=== PATIENT | female | born 1940 | race Caucasian/White ===

== ENCOUNTER 2016-12-23 08:08 | Day surgery (SDC) | payer MEDICARE, BC ==
[~2016-12-23 08:08] MED LIST: PROPOFOL 500 MG/50 ML EMU IV ONE
[2016-12-23] MEDS ORDERED: ONDANSETRON HCL 4 MG/2 ML SOL ONE (10:43)
[2016-12-23 11:32] VITALS: BP 129/58; PULSE 70; RESP 24; TEMP 97.2; O2SAT 95
== END 2016-12-23 11:44 | disposition home or self-care (01) | DRG 951 ==
LOC: SURG 08:08
PROVIDERS: ATTEND Surgery
DX: Z12.11 Encounter for screening for malignant neoplasm of colon (principal)
CPT/HCPCS: J2405; J2704

== ENCOUNTER 2017-03-27 17:21 | Emergency (ER) | payer MEDICARE, BC ==
[2017-03-27 17:46] LABS: HEMATOCRIT 39 % (35-47); MEAN CORPUSCULAR HGB CONC 33.5 gm/dl (32.0-36.0); MEAN CORPUSCULAR VOLUME 91 fL (81-99)
[2017-03-27 18:05] LABS: ALBUMIN 3.3 gm/dl (3.4-5.0); CALCIUM 8.4 mg/dl (8.5-10.1); POTASSIUM 3.9 mMol/L (3.5-5.1)
[2017-03-27 18:26] LABS: BASOPHILS % (MANUAL) 2 % (0-3); EOSINOPHILS % (MANUAL) 0 % (0-9); LYMPHOCYTES % (MANUAL) 16 % (10-50)
[2017-03-27 18:28] LABS: HYPERSEGMENTED NEUTROPHILS 15; NORMAL RBCS NORMAL RBCS
[2017-03-27 19:23] VITALS: TEMP 98.4
[2017-03-27] MEDS ORDERED: ALBUTEROL/IPRATROPIUM 1 VIAL SOL INH ONE (20:37)
[2017-03-27] MEDS ORDERED: ALBUTEROL/IPRATROPIUM 1 VIAL SOL ONE (20:37)
[2017-03-27 20:48] VITALS: RESP 16
[2017-03-27 21:39] VITALS: BP 140/68; PULSE 66; O2SAT 96
== END 2017-03-27 21:30 | disposition home or self-care (01) | DRG 192 ==
LOC: ED 17:21
DX: J44.1 Chronic obstructive pulmonary disease with (acute) exacerbation (principal)
CPT/HCPCS: 36415; 71010; 71275; 80053; 83880; 85007; 85027; 85378; 93005; 99283; 99285; J7620; Q9967

== ENCOUNTER 2017-06-14 13:40 | Emergency (ER) | payer MEDICARE, BC ==
[2017-06-14] MEDS ORDERED: METOPROLOL TARTRATE 5 MG/5 ML SOL IV ONE ×2 (14:09→14:20)
[2017-06-14] MEDS ORDERED: SODIUM CHLORIDE 0.9% FLUSH 10 ML SOL IV PRN (14:35)
[2017-06-14] MEDS ORDERED: ASPIRIN 81 MG CHEWABLE CTB PO STA (14:35)
[2017-06-14] MEDS ORDERED: NITROGLYCERIN 0.4 MG TAB SL PRN (14:35)
[2017-06-14] MEDS ORDERED: ASPIRIN 81 MG CHEWABLE CTB ONE (14:41)
[2017-06-14 14:50] LABS: BASOPHILS % (AUTO) 3 % (0-3); EOSINOPHILS % (AUTO) 1 % (0-9); HEMATOCRIT 39 % (35-47); MEAN CORPUSCULAR HGB CONC 32.4 gm/dl (32.0-36.0); MEAN CORPUSCULAR VOLUME 94 fL (81-99); MONOCYTES % (AUTO) 6.4 % (0-12); NEUTROPHILS % (AUTO) 82.4 % (37-80)
[2017-06-14 15:06] LABS: APPEARANCE,URINE Clear; BILIRUBIN,URINE NEGATIVE (NEGATIVE); COLOR,URINE Yellow; GLUCOSE, URINE (UA) NEGATIVE (NEGATIVE); KETONES,URINE NEGATIVE (NEGATIVE); LEUKOCYTE ESTERASE ,URINE TRACE (NEGATIVE); NITRATE,URINE NEGATIVE (NEGATIVE); OCCULT BLOOD,URINE NEGATIVE (NEG-TRACE); PH,URINE 6.5; UROBILINOGEN,URINE 0.2 (0.2-1.0 EU)
[2017-06-14 15:15] LABS: ALBUMIN 2.9 gm/dl (3.4-5.0); BILIRUBIN,DIRECT 0.2 mg/dl (0.0-0.2); CALCIUM 7.9 mg/dl (8.5-10.1); MAGNESIUM 1.9 mg/dl (1.8-2.4); POTASSIUM 3.9 mMol/L (3.5-5.1)
[2017-06-14 15:36] VITALS: PULSE 115; TEMP 98.4
[2017-06-14 15:37] VITALS: BP 104/67; RESP 26; O2SAT 97
[2017-06-14 15:53] LABS: RBC,URINE NEG (0-3AV/HPF); WBC,URINE 0-2 (0-5AV/HPF)
== END 2017-06-14 16:25 | disposition home or self-care (01) | DRG 310 ==
LOC: ED 13:40
DX: I48.92 Unspecified atrial flutter (principal); D69.6 Thrombocytopenia, unspecified; M32.8 Other forms of systemic lupus erythematosus; J44.9 Chronic obstructive pulmonary disease, unspecified
CPT/HCPCS: 36415; 71045; 80048; 80076; 81001; 82550; 83735; 84100; 84484; 85025; 85610; 85730; 87040; 93005; 99285

== ENCOUNTER 2017-07-13 15:08 | Inpatient (IN) | payer MEDICARE, BC ==
[2017-07-13] MEDS ORDERED: SODIUM CHLORIDE 0.9% 500 ML 500 ML IV SCH (15:15)
[2017-07-13] MEDS ORDERED: FUROSEMIDE 20mg SOL IV SCH (15:15)
[2017-07-13 16:29] LABS: ABO O; ANTIBODY SCREEN Negative; RH TYPE Positive
[2017-07-13 16:30] LABS: UNIT TYPE O POSITIVE
[2017-07-13] MEDS: SODIUM CHLORIDE 0.9% FLUSH 10 ML SOL IV PRN ×2 (17:09→19:32)
[2017-07-13] MEDS ORDERED: LORAZEPAM 0.5 MG TAB PO PRN (17:16)
[2017-07-13] MEDS ORDERED: NITROGLYCERIN 0.4 MG TAB SL PRN (17:16)
[2017-07-13] MEDS ORDERED: POLYETHYLENE GLYCOL 17 GM/1 TBS PDS PO PRN (17:16)
[2017-07-13] MEDS ORDERED: ALBUTEROL HFA 60 PUFF/INHALER INH PRN (17:16)
[2017-07-13] MEDS ORDERED: ALBUTEROL NEB SOL 2.5MG/3ML 1 VIAL SOL NEB PRN (17:16)
[2017-07-13] MEDS ORDERED: BETAMETHASONE DIPROPIONATE TP PRN (17:16)
[2017-07-13] MEDS: PENTOXIFYLLINE 400 MG PO SCH (18:23)
[2017-07-13] MEDS: HYDROXYCHLOROQUINE SULFATE 200 MG TAB PO SCH (20:45)
[2017-07-13] MEDS: Non-Formulary Medication MISC (Budesonide/Formoterol 160/4.5 1 PUFF) INH SCH (20:45)
[2017-07-13] MEDS ORDERED: SIMVASTATIN 20 MG TAB PO SCH (21:00)
[2017-07-13] MEDS: DILTIAZEM HYDROCHLORIDE 60 MG TAB PO SCH (21:20)
[2017-07-13] MEDS ORDERED: TEMAZEPAM 15MG 15 MG CAP PO PRN (22:39)
[2017-07-13] MEDS ORDERED: DOCUSATE SODIUM 100 MG SGL PO PRN (23:44)
[2017-07-14 06:39] VITALS: O2SAT 93
[2017-07-14] MEDS ORDERED: OMEPRAZOLE 20 MG CAPSULE PO SCH (07:00)
[2017-07-14 07:21] LABS: BASOPHILS % (AUTO) 4 % (0-3); EOSINOPHILS % (AUTO) 1 % (0-9); HEMATOCRIT 28 % (35-47); MEAN CORPUSCULAR HGB CONC 32.9 gm/dl (32.0-36.0); MEAN CORPUSCULAR VOLUME 92 fL (81-99); MONOCYTES % (AUTO) 6.6 % (0-12); NEUTROPHILS % (AUTO) 70.8 % (37-80)
[2017-07-14 07:25] LABS: CALCIUM 7.8 mg/dl (8.5-10.1); POTASSIUM 3.7 mMol/L (3.5-5.1)
[2017-07-14] MEDS: DILTIAZEM HYDROCHLORIDE 60 MG TAB PO SCH (08:49)
[2017-07-14] MEDS: Non-Formulary Medication MISC (Budesonide/Formoterol 160/4.5 1 PUFF) INH SCH (08:56)
[2017-07-14] MEDS ORDERED: ENOXAPARIN 40 MG SOL SC SCH (09:00)
[2017-07-14] MEDS ORDERED: SENNOSIDES A AND B 8.6 MG TAB PO SCH (09:00)
[2017-07-14] MEDS ORDERED: FUROSEMIDE 20 MG TAB PO SCH (09:00)
[2017-07-14] MEDS: HYDROXYCHLOROQUINE SULFATE 200 MG TAB PO SCH (09:00)
[2017-07-14] MEDS ORDERED: ASPIRIN EC 81 MG PO SCH (09:00)
[2017-07-14] MEDS ORDERED: PANTOPRAZOLE SODIUM 40 MG ECT PO SCH (09:00)
[2017-07-14] MEDS ORDERED: [UNRECOGNIZED DRUG - OTHER] INH SCH (09:00)
[2017-07-14] MEDS ORDERED: SERTRALINE HYDROCHLORIDE 50 MG TAB PO SCH (09:00)
[2017-07-14] MEDS ORDERED: FERROUS SULFATE 325 MG TAB PO SCH (09:00)
[2017-07-14] MEDS ORDERED: HYDROXYUREA PO SCH (09:00)
[2017-07-14] MEDS: PENTOXIFYLLINE 400 MG PO SCH (09:14)
[2017-07-14 12:17] VITALS: BP 103/63; PULSE 76; RESP 14; TEMP 98.3
[2017-07-14] MEDS ORDERED: PENTOXIFYLLINE 400 MG PO SCH (18:00)
[2017-07-14] MEDS ORDERED: BUDESONIDE/FORMOTEROL 160/4.5 AER INH SCH (21:00)
[2017-07-15] MEDS ORDERED: FERROUS GLUCONATE 324 MG TABLET PO SCH (09:00)
[2017-07-15] MEDS ORDERED: HYDROXYUREA 500 MG CAP PO SCH (09:00)
== END 2017-07-14 10:40 | disposition home or self-care (01) | DRG 812 ==
LOC: ACUTE CARE 15:08 → OBSVTOIN 15:08
PROVIDERS: ADMIT Emergency Medicine; ATTEND Emergency Medicine
PROC: 30233N1 Transfusion of Nonautologous Red Blood Cells into Peripheral Vein, Percutaneous Approach (ICD-10-PCS; principal; 2017-07-13)
DX: D64.9 Anemia, unspecified (principal); R06.00 Dyspnea, unspecified; I25.10 Atherosclerotic heart disease of native coronary artery without angina pectoris; I35.0 Nonrheumatic aortic (valve) stenosis
CPT/HCPCS: 36415; 80048; 85025; 86850; 86900; 86901; 86920; 93012; 94150; 99070; J1940; J7613; P9016; A9270-GY

== ENCOUNTER 2017-11-13 18:33 | Emergency (ER) | payer MEDICARE, BC ==
[2017-11-13 18:59] VITALS: RESP 16; TEMP 97
[2017-11-13] MEDS ORDERED: CEPHALEXIN 250 MG/5 ML BOTTLE PO ONE (18:59)
[2017-11-13] MEDS ORDERED: CEPHALEXIN 250 MG/5 ML BOTTLE ONE (19:03)
[2017-11-13 19:29] VITALS: BP 118/66; PULSE 68; O2SAT 91
== END 2017-11-13 19:25 | disposition home or self-care (01) | DRG 556 ==
LOC: ED 18:33
DX: M25.561 Pain in right knee (principal)
CPT/HCPCS: 99282; A9270-GY

== ENCOUNTER 2018-02-18 00:22 | Emergency (ER) | payer MEDICARE, BC ==
[2018-02-18 00:22] VITALS: O2SAT 94
[2018-02-18 00:29] VITALS: BP 151/71; PULSE 86; RESP 22; TEMP 97.6
[2018-02-18] MEDS ORDERED: APAP/HYDROCODONE 325/5 TAB PO ONE (00:50)
[2018-02-18] MEDS ORDERED: CEFTRIAXONE 1 GM PDS IM ONE (00:50)
[2018-02-18] MEDS ORDERED: APAP/HYDROCODONE 325/5 TAB ONE (00:54)
[2018-02-18] MEDS ORDERED: CEFTRIAXONE 1 GM PDS ONE (00:55)
[2018-02-18] MEDS ORDERED: LIDOCAINE HCL 1% MPF 30 SOL ONE (00:56)
[2018-02-18] MEDS ORDERED: DILTIAZEM 5 MG/ML SOL IV ONE (01:14)
[2018-02-18 01:26] LABS: BASOPHILS % (AUTO) 1 % (0-3); EOSINOPHILS % (AUTO) 0 % (0-9); HEMATOCRIT 45 % (35-47); LYMPHOCYTES % (AUTO) 4.6 % (10-50); MEAN CORPUSCULAR HEMOGLOBIN 34.4 pg (27.0-32.0); MEAN CORPUSCULAR HGB CONC 33.6 gm/dl (32.0-36.0); MONOCYTES % (AUTO) 5.5 % (0-12)
[2018-02-18 01:38] LABS: CALCIUM 8.5 mg/dl (8.5-10.1); CARBON DIOXIDE 31.5 mEq/L (21-32); CREATININE 1.18 mg/dl (0.60-1.00); CRP INFLAMMATORY 0.38 mg/dl (0.00-0.33); POTASSIUM 3.9 mMol/L (3.5-5.1)
[2018-02-18 01:44] LABS: MEAN CORPUSCULAR VOLUME 102 fL (81-99)
[2018-02-18 01:45] LABS: ANISOCYTOSIS SLIGHT AMT
[2018-02-18] MEDS ORDERED: SULFAMETHOXAZOLE/TRIMETHOPRI 800/160 MG PO ONE (01:54)
[2018-02-18] MEDS ORDERED: SULFAMETHOXAZOLE/TRIMETHOPRI 800/160 MG ONE (02:00)
== END 2018-02-18 02:12 | disposition home or self-care (01) | DRG 603 ==
LOC: ED 00:22
DX: L03.031 Cellulitis of right toe (principal); L97.512 Non-pressure chronic ulcer of other part of right foot with fat layer exposed
CPT/HCPCS: 36415; 80048; 85025; 87040; 96372; 99283; J0696; A9270-GY; J2001

== ENCOUNTER 2018-04-11 14:05 | Emergency (ER) | payer MEDICARE, BC ==
[2018-04-11] MEDS ORDERED: SODIUM CHLORIDE 0.9% FLUSH 10 ML SOL IV PRN (14:32)
[2018-04-11] MEDS ORDERED: NITROGLYCERIN 0.4 MG TAB SL PRN (14:32)
[2018-04-11] MEDS ORDERED: ASPIRIN 81 MG CHEWABLE CTB PO STA (14:32)
[2018-04-11 14:47] VITALS: TEMP 98.1
[2018-04-11 15:00] LABS: HEMATOCRIT 46 % (35-47); MEAN CORPUSCULAR HEMOGLOBIN 34.5 pg (27.0-32.0); MEAN CORPUSCULAR HGB CONC 32.4 gm/dl (32.0-36.0)
[2018-04-11 15:01] LABS: MEAN CORPUSCULAR VOLUME 106 fL (81-99)
[2018-04-11 15:04] LABS: ALBUMIN 3.3 gm/dl (3.4-5.0); BILIRUBIN,TOTAL 0.7 mg/dl (0.2-1.0); CALCIUM 8.7 mg/dl (8.5-10.1); CARBON DIOXIDE 28.2 mEq/L (21-32); CREATININE 1.13 mg/dl (0.60-1.00); POTASSIUM 3.4 mMol/L (3.5-5.1); TOTAL PROTEIN 6.3 gm/dl (6.4-8.2); TROP I 0.018 ng/ml (0.000-0.056)
[2018-04-11 15:14] LABS: APPEARANCE,URINE Clear; BILIRUBIN,URINE NEGATIVE (NEGATIVE); COLOR,URINE Yellow; GLUCOSE, URINE (UA) NEGATIVE (NEGATIVE); KETONES,URINE NEGATIVE (NEGATIVE); LEUKOCYTE ESTERASE ,URINE NEGATIVE (NEGATIVE); NITRATE,URINE NEGATIVE (NEGATIVE); OCCULT BLOOD,URINE NEGATIVE (NEG-TRACE); PH,URINE 5.5; UROBILINOGEN,URINE 0.2 (0.2-1.0 EU)
[2018-04-11 15:27] LABS: BAND NEUTROPHILS % (MANUAL) 0 %; BASOPHILS % (MANUAL) 1 % (0-3); EOSINOPHILS % (MANUAL) 0 % (0-9); LYMPHOCYTES % (MANUAL) 3 % (10-50); MONOCYTES % (MANUAL) 1 % (0-12); NEUTROPHILS % (MANUAL) 95 % (37-80); NORMAL RBCS PRESENT
[2018-04-11] MEDS ORDERED: ASPIRIN 81 MG CHEWABLE CTB ONE (15:34)
[2018-04-11 15:45] VITALS: O2SAT 95
[2018-04-11 16:00] LABS: EPITHELIAL CELLS 0-3 (SQUAMOUS); RBC,URINE NEGATIVE (0-3AV/HPF); WBC,URINE 0-1 (0-5AV/HPF)
[2018-04-11 16:01] LABS: BACTERIA 1+ (< 1+); CRYSTALS NEGATIVE (0-3 AVE/HPF)
[2018-04-11 18:26] VITALS: BP 111/91; PULSE 115; RESP 28
== END 2018-04-11 17:46 | disposition home or self-care (01) | DRG 310 ==
LOC: ED 14:29
DX: I48.91 Unspecified atrial fibrillation (principal); I50.9 Heart failure, unspecified
CPT/HCPCS: 71045; 80053; 81001; 83880; 84484; 85007; 85027; 93005; 99284

== ENCOUNTER 2018-05-13 18:57 | Emergency (ER) | payer MEDICARE, BC ==
[2018-05-13 19:27] VITALS: RESP 18; TEMP 97.8
[2018-05-13] MEDS ORDERED: CEFTRIAXONE 1 GM PDS 1 GM in SODIUM CHLORIDE 0.9% 50 ML 50 ML IV ONE (19:49)
[2018-05-13] MEDS ORDERED: CEFTRIAXONE 1 GM PDS ONE (19:57)
[2018-05-13 20:02] LABS: HEMATOCRIT 44 % (35-47); HEMOGLOBIN 14.6 gm/dl (12.0-15.5); MEAN CORPUSCULAR HEMOGLOBIN 34.8 pg (27.0-32.0); MEAN CORPUSCULAR HGB CONC 33.4 gm/dl (32.0-36.0)
[2018-05-13 20:10] LABS: CALCIUM 8.6 mg/dl (8.5-10.1); CARBON DIOXIDE 26.2 mEq/L (21-32); CREATININE 1.21 mg/dl (0.60-1.00); POTASSIUM 4.3 mMol/L (3.5-5.1)
[2018-05-13 20:12] LABS: MEAN CORPUSCULAR VOLUME 104 fL (81-99)
[2018-05-13 20:48] LABS: BAND NEUTROPHILS % (MANUAL) 0 %; BASOPHILS % (MANUAL) 2 % (0-3); EOSINOPHILS % (MANUAL) 3 % (0-9); LYMPHOCYTES % (MANUAL) 8 % (10-50); MONOCYTES % (MANUAL) 2 % (0-12); NEUTROPHILS % (MANUAL) 85 % (37-80)
[2018-05-13 20:49] LABS: ANISOCYTOSIS SLIGHT AMT
[2018-05-13 23:04] VITALS: BP 112/58; PULSE 66; O2SAT 99
== END 2018-05-13 21:30 | disposition home or self-care (01) | DRG 603 ==
LOC: ED 18:57
DX: L03.116 Cellulitis of left lower limb (principal)
CPT/HCPCS: 36415; 80048; 85007; 85027; 87040; 96365; 99282; 99283; J0696

== ENCOUNTER 2018-09-02 21:34 | Emergency (ER) | payer MEDICARE, BC ==
[2018-09-02] MEDS ORDERED: KETOROLAC TROMETHAMINE 30 MG/ML SOL IM ONE (22:13)
[2018-09-02] MEDS ORDERED: ACETAMI/HYDROCO 325/10 TAB PO ONE (22:14)
[2018-09-02 22:21] VITALS: RESP 16; TEMP 97.5
[2018-09-02] MEDS ORDERED: APAP/HYDROCODONE 1 EACH TABLET ONE (22:21)
[2018-09-02] MEDS ORDERED: KETOROLAC TROMETHAMINE 30 MG/ML SOL ONE (22:21)
[2018-09-02 23:41] VITALS: BP 120/68; PULSE 78; O2SAT 98
== END 2018-09-02 23:38 | disposition home or self-care (01) | DRG 603 ==
LOC: ED 21:34
DX: L03.116 Cellulitis of left lower limb (principal); L97.329 Non-pressure chronic ulcer of left ankle with unspecified severity
CPT/HCPCS: 96372; 99283; 99284; J1885; A6232; A9270-GY

== ENCOUNTER 2018-09-04 06:25 | Emergency (ER) | payer MEDICARE, BC ==
[2018-09-04 06:59] VITALS: TEMP 96.5
[2018-09-04] MEDS ORDERED: PIPERACILLIN/TAZOBACT 3.375 GM 3.375 GM in SODIUM CHLORIDE 0.9% 100 ML 100 ML IV ONE (07:09)
[2018-09-04] MEDS ORDERED: SODIUM CHLORIDE 0.9% FLUSH 10 ML SOL IV PRN (07:10)
[2018-09-04] MEDS ORDERED: PIPERACILLIN/TAZOBACT 3.375 GM PDS IV ONE (07:15)
[2018-09-04 08:17] VITALS: BP 106/57; PULSE 62; RESP 20; O2SAT 96
== END 2018-09-04 08:33 | disposition home or self-care (01) | DRG 603 ==
LOC: ED 06:25
DX: L03.116 Cellulitis of left lower limb (principal)
CPT/HCPCS: 96365; 99282; 99284; J2543

== ENCOUNTER 2018-11-26 18:21 | Emergency (ER) | payer MEDICARE, BC ==
[2018-11-26] MEDS ORDERED: AMOXIL/CLAVULANATE 400/5 ML PDR PO ONE (19:08)
[2018-11-26] MEDS ORDERED: AUGMENTIN(FRIDGE) 400 MG/5 ML ONE (19:20)
[2018-11-26 19:32] VITALS: BP 133/71; PULSE 72; RESP 16; TEMP 98.2; O2SAT 95
== END 2018-11-26 19:29 | disposition home or self-care (01) | DRG 603 ==
LOC: ED 18:21
DX: L03.115 Cellulitis of right lower limb (principal); L97.519 Non-pressure chronic ulcer of other part of right foot with unspecified severity
CPT/HCPCS: 99282; A6232; A9270-GY

== ENCOUNTER 2019-02-05 12:49 | Emergency (ER) | payer MEDICARE, BC | END 2019-02-05 16:05 | disposition home or self-care (01) | LOC: ED 12:49 ==